=== PATIENT | female | born 1985 | race Caucasian/White ===

== ENCOUNTER 2017-12-13 11:01 | Day surgery (SDC) | payer BC ==
[2017-12-13] MEDS ORDERED: Propofol 200 MG/20 ML SDV ONE (11:03)
[2017-12-13] MEDS ORDERED: Ondansetron 4 MG/2 ML SDV ONE (11:03)
[2017-12-13] MEDS ORDERED: fentaNYL 250 MCG/5 ML SDV ONE (11:03)
[2017-12-13] MEDS ORDERED: Lidocaine 2% 5 ML SDV ONE (11:03)
[2017-12-13] MEDS ORDERED: Midazolam 1 MG/ML 2 ML SDV ONE (11:03)
[2017-12-13] MEDS ORDERED: Sodium Chloride 0.9% 10 ML Syringe FLUSH PRN (11:09)
[2017-12-13] MEDS ORDERED: Sodium Chloride 0.9% 2.5 ML Syringe FLUSH PRN (11:09)
[2017-12-13] MEDS ORDERED: Lactated Ringers 1,000 ML IV SCH (11:15)
--- NOTE | 2017-12-13 11:26 | PCM.PREANE ---
Preanesthetic Assessment - Anesthesia/Transfusion/Family Hx Anesthesia History: Prior Anesthesia Without Reaction Family History of Anesthesia Reaction: No Transfusion History: No Prior Transfusion(s) - Review of Systems General: No Symptoms Pulmonary: No Symptoms Cardiovascular: No Symptoms Gastrointestinal: No Symptoms Neurological: No Symptoms Other: Reports: None - Physical Assessment NPO Status Date: 12/12/17 Height: 1.57 m Weight: 86.183 kg ASA Class: 2 Mental Status: Alert & Oriented x3 Airway Class: Mallampati = 1 Dentition: Reports: Normal Dentition ROM/Head Extension: Full Lungs: Clear to Auscultation, Normal Respiratory Effort Cardiovascular: Regular Rate, Regular Rhythm - Allergies Allergies/Adverse Reactions: Allergies Allergy/AdvReac Type Severity Reaction Status Date / Time No Known Allergies Allergy Verified 12/13/17 07:23 - Blood Blood Available: No - Anesthesia Plan Pre-Op Medication Ordered: None - Acknowledgements Anesthesia Type Planned: General Anesthesia Pt an Appropriate Candidate for the Planned Anesthesia: Yes Alternatives and Risks of Anesthesia Discussed w Pt/Guardian: Yes Pt/Guardian Understands and Agrees with Anesthesia Plan: Yes Additional Comments: PMH: missed ab at 8 weeks, blighted ovum. 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 [No Known Home Meds] 12/13/17 [History] - CURRENT (IN HOUSE) MEDS Current Meds: Current Medications Lactated Ringer's (Ringers, Lactated) 1,000 mls @ 125 mls/hr IV ASDIRECTED MAGGIE Sodium Chloride (Saline Flush) 10 ml FLUSH ASDIRECTED PRN PRN Reason: Keep Vein Open Sodium Chloride (Saline Flush) 2.5 ml FLUSH ASDIRECTED PRN PRN Reason: Keep Vein Open Discontinued Medications Fentanyl (Sublimaze) Confirm Administered Dose 250 mcg .ROUTE .STK-MED ONE Stop: 12/13/17 11:04 Lidocaine (Xylocaine-Mpf 2%) Confirm Administered Dose 5 ml .ROUTE .STK-MED ONE Stop: 12/13/17 11:04 Midazolam HCl (Versed 1 Mg/Ml) Confirm Administered Dose 2 mg .ROUTE .STK-MED ONE Stop: 12/13/17 11:04 Ondansetron HCl (Zofran) Confirm Administered Dose 4 mg .ROUTE .STK-MED ONE Stop: 12/13/17 11:04 Propofol (Diprivan 20 Ml) Confirm Administered Dose 200 mg .ROUTE .STK-MED ONE Stop: 12/13/17 11:04
[2017-12-13] MEDS ORDERED: fentaNYL 100 MCG/2 ML SDV IVPUSH PRN (11:56)
[2017-12-13] MEDS ORDERED: Ketorolac 30 MG/ML SDV IVPUSH ONE (12:11)
--- NOTE | 2017-12-13 12:17 | PCM.OPNOTE ---
- General Post-Op/Procedure Note Date of Surgery/Procedure: 12/13/17 Operative Procedure(s): Suction D&C Findings: Products of conception Pre Op Diagnosis: Blighted ovum Post-Op Diagnosis: Blighted ovum Anesthesia Technique: General LMA Primary Surgeon: Diaan Sosa Anesthesia Provider: Bharath Espinoza Churn Driller: Netta Rockwell Pathology: Products of conception Fluid Replacement, Intraop: 1,000 EBL in mLs: 100 Complications: None known Condition: Good Free Text/Narrative:: Dictation [id number]
--- NOTE | 2017-12-13 12:31 | PCM.POSTAN ---
POST ANESTHESIA ASSESSMENT - MENTAL STATUS Mental Status: Alert, Oriented - RESPIRATORY Respiratory Status: Respiratory Rate WNL, Airway Patent, O2 Saturation Stable - CARDIOVASCULAR CV Status: Pulse Rate WNL, Blood Pressure Stable - GASTROINTESTINAL GI Status: No Symptoms - POST OP HYDRATION Hydration Status: Adequate & Stable
--- NOTE | 2017-12-13 13:46 | PCM48HPAN ---
Post Anesthesia Note - EVALUATION WITHIN 48HRS OF ANESTHETIC Vital Signs in Normal Range: Yes Patient Participated in Evaluation: Yes Respiratory Function Stable: Yes Airway Patent: Yes Cardiovascular Function Stable: Yes Hydration Status Stable: Yes Pain Control Satisfactory: Yes Nausea and Vomiting Control Satisfactory: Yes Mental Status Recovered: Yes Resp Rate: 15
[2017-12-13 15:19] VITALS: BP 114/62
--- NOTE | 2017-12-13 16:10 | OR ---
SURGEON: Diana Sosa M.D. DATE OF PROCEDURE: 12/13/2017 PREOPERATIVE DIAGNOSES: Missed , blighted ovum. POSTOPERATIVE DIAGNOSIS: Missed , blighted ovum. PROCEDURE: Suction D and C. RIDES ATTENDANT: CASIMIRO Figueroa ANESTHESIA: General LMA. FLUIDS: 1000 mL of crystalloid with 20 units of Pitocin. COMPLICATION: None known. FINDINGS: Products of conception. DISPOSITION: The patient to PACU, stable. SPECIMEN: Pathology. INDICATION: Soila is a 32-year-old female, who recently presented for an OB appointment. Ultrasound that day revealed an 8-week 3 day empty intrauterine gestational sac consistent with blighted ovum. Serial quant HCG level shows quant is falling consistent also with a blighted ovum. Options have been discussed with Soila and she prefers to proceed with surgical intervention and performed suction D and C. Risks of procedure were discussed. Proper consent obtained. PROCEDURE IN DETAIL: The patient was taken to the operating room where she underwent general LMA, was placed in modified dorsal lithotomy position, prepped and draped in the usual sterile fashion. The bladder was drained. Time-out was performed. Speculum was introduced into vagina and posterior lip of cervix was grasped with an Allis clamp. Cervix was gently dilated to 8 mm using a curved 8 mm curette. This was introduced to the fundus. Care was taken knowing that the patient has unicornuate uterus. With suction applied, the uterine cavity was cleared of contents. Once the uterus felt to be satisfactorily emptied, the gentle sharp curettage was performed. All specimens sent to Pathology for further analysis. Fundal pressure was performed along with 20 of Pitocin IV and hemostasis was evident. Sponge and instrument count were correct x2. The patient tolerated the procedure well overall. Hemostasis appeared evident. Specimen to pathology. [place] / [place] /[id number]
== END 2017-12-13 13:58 | disposition home or self-care (01) ==
LOC: MW.SDS 11:01
PROVIDERS: ATTEND Obstetrics & Gynecology
DX: O02.0 Blighted ovum and nonhydatidiform mole (principal); O99.211 Obesity complicating pregnancy, first trimester; E66.9 Obesity, unspecified; Z68.34 Body mass index [BMI] 34.0-34.9, adult; Z79.899 Other long term (current) drug therapy
CPT/HCPCS: 36415; 59820; 85027; J1885; J2250; J2405; J2704; J3010; J7120

== ENCOUNTER 2018-01-03 11:08 | Emergency (ER) | payer BC ==
[2018-01-03 11:17] VITALS: BP 129/82
[2018-01-03] MEDS ORDERED: Ketorolac 60 MG/2 ML SDV IM ONE (11:41)
--- NOTE | 2018-01-03 11:42 | EDM.PDOC ---
ED HPI GENERAL MEDICAL PROBLEM - General Chief Complaint: HIGH COURT JUSTICE Problem Stated Complaint: ABD PAIN AND BLEEDING Time Seen by Provider: 01/03/18 11:38 Source of Information: Reports: Patient History Limitations: Reports: No Limitations - History of Present Illness INITIAL COMMENTS - FREE TEXT/NARRATIVE: HISTORY AND PHYSICAL: History of present illness: Patient is a 32-year-old female here with complaint pelvic pain and vaginal bleeding. Patient had a D&C done [address] Sosa secondary to a blighted ovum. She states she had intermittent light bleeding since then. She states that yesterday she had some pelvic cramping and a little more bleeding, she called Dr. Sosa's office and was told it was likely her hormones and the start of a period. She states that this morning she put in a super plus tampon and it was soaked within 45 minutes. She reports when she took it out she had a gush of blood and passed a large clot. She currently has a pad in and still having quite a bit of bleeding. She denies any fevers, chills, nausea, vomiting , diarrhea, hematuria, melena, hematochezia. Review of systems: As per history of present illness and below otherwise all systems reviewed and negative. Past medical history: As per history of present illness and as reviewed below otherwise noncontributory. Surgical history: As per history of present illness and as reviewed below otherwise noncontributory. Social history: No reported history of drug or alcohol abuse. Family history: As per history of present illness and as reviewed below otherwise noncontributory. Physical exam: General: Patient sitting comfortably in no acute distress and nontoxic appearing HEENT: Atraumatic, normocephalic, pupils reactive, negative for conjunctival pallor or scleral icterus, mucous membranes moist, throat clear, neck supple, nontender, trachea midline. No meningeal signs. Lungs: Clear to auscultation, breath sounds equal bilaterally, chest nontender. Heart: S1S2, regular, negative for clicks, rubs, or overt murmur. Abdomen: Soft, nondistended, nontender. Negative for masses or hepatosplenomegaly. Negative for costovertebral tenderness. Pelvis: Stable nontender. Genitourinary: Deferred. Rectal: Deferred. Extremities: Atraumatic, negative for cords or calf pain. Neurovascular unremarkable. Neuro: Awake, alert, oriented. Cranial nerves II through XII unremarkable. Cerebellum unremarkable. Motor and sensory unremarkable throughout. Exam nonfocal. Notes: 1310 - Discussed with Dr. Sosa, patient will follow up with her in clinic. Diagnostics: CBC, Hcg quant, UA Pelvic US Therapeutics: Toradol 60mg IM Prescriptions: None Impression: Pelvic pain, vaginal bleeding Plan: 1. Take midol and motrin as needed. Heat packs and warm baths as needed. 2. Follow up with [facility], call in the morning for appointment if you do not hear from them. 3. Return to ED as needed as discussed Definitive disposition and diagnosis as appropriate pending reevaluation and review of above. pelvic pain Pain Score (Numeric/FACES): 8 - Related Data Allergies Allergy/AdvReac Type Severity Reaction Status Date / Time No Known Allergies Allergy Verified 01/03/18 11:13 Home Meds: Home Meds . 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 HIGH COURT JUSTICE History: unicornuate uterus Endocrine/Metabolic History: Reports: Obesity/BMI 30+ - Infectious Disease History Infectious Disease History: Reports: Chicken Pox - Past Surgical History Head Surgeries/Procedures: Reports: None Female Surgical History: Reports: Section, D&C Social & Family History - Family History Family Medical History: Noncontributory Cardiac: Reports: Hypertension Endocrine/Metabolic: Reports: Diabetes, Type I Oncologic: Reports: Other (See Below) Other Oncologic Family History: lymphoma - Tobacco Use Smoking Status *Q: Never Smoker - Caffeine Use Caffeine Use: Reports: Soda - Recreational Drug Use Recreational Drug Use: No ED ROS GENERAL - Review of Systems Review Of Systems: ROS reveals no pertinent complaints other than HPI. ED EXAM, RENAL/ - Physical Exam Exam: See Below (see dictation) Course - Vital Signs Last Recorded V/S: Last Vital Signs Temp 36.4 C 01/03/18 11:13 Pulse 74 01/03/18 11:13 Resp 20 01/03/18 11:13 BP 129/82 01/03/18 11:13 Pulse Ox 97 09/18/18 11:13 - Orders/Labs/Meds Orders: Active Orders 24 hr Category Date Time Status UA W/MICROSCOPIC [URIN] Stat Lab 01/03/18 11:17 Ordered Labs: Laboratory Tests 01/03/18 01/03/18 Range/Units 11:38 11:38 WBC 7.62 (4.0-11.0) K/uL RBC 4.22 L (4.30-5.90) M/uL Hgb 13.5 (12.0-16.0) g/dL Hct 39.0 (36.0-46.0) % MCV 92.4 (80.0-98.0) fL MCH 32.0 (27.0-32.0) pg MCHC 34.6 (31.0-37.0) g/dL RDW Std Deviation 43.7 (28.0-62.0) fl RDW Coeff of Carmen 13 (11.0-15.0) % Plt Count 192 (150-400) K/uL MPV 9.80 (7.40-12.00) fL Neut % (Auto) 58.9 (48.0-80.0) % Lymph % (Auto) 31.9 (16.0-40.0) % Thurston % (Auto) 8.4 (0.0-15.0) % Eos % (Auto) 0.5 (0.0-7.0) % Baso % (Auto) 0.3 (0.0-1.5) % Neut # (Auto) 4.5 (1.4-5.7) K/uL Lymph # (Auto) 2.4 (0.6-2.4) K/uL Thurston # (Auto) 0.6 (0.0-0.8) K/uL Eos # (Auto) 0.0 (0.0-0.7) K/uL Baso # (Auto) 0.0 (0.0-0.1) K/uL Nucleated RBC % 0.0 /100WBC Nucleated RBCs # 0 K/uL HCG, Quant 565.0 mIU/mL Meds: Medications Discontinued Medications Generic Name Dose Route Start Last Admin Trade Name Freq PRN Reason Stop Dose Admin Ketorolac Tromethamine 60 mg 01/03/18 11:41 01/03/18 11:49 Toradol IM 01/03/18 11:42 60 mg ONETIME ONE Administration Departure - Departure Time of Disposition: 13:17 Disposition: Home, Self-Care 01 Condition: Good Clinical Impression: Pelvic pain, Vaginal bleeding - Discharge Information Referrals: PCP,None [Primary Care Provider] - Forms: ED Department Discharge Additional Instructions: The following information is given to patients seen in the emergency department who are being discharged to home. This information is to outline your options for follow-up care. We provide all patients seen in our emergency department with a follow-up referral. The need for follow-up, as well as the timing and circumstances, are variable depending upon the specifics of your emergency department visit. If you don't have a primary care physician on staff, we will provide you with a referral. We always advise you to contact your personal physician following an emergency department visit to inform them of the circumstance of the visit and for follow-up with them and/or the need for any referrals to a consulting specialist. The emergency department will also refer you to a specialist when appropriate. This referral assures that you have the opportunity for follow-up care with a specialist. All of these measure are taken in an effort to provide you with optimal care, which includes your follow-up. Under all circumstances we always encourage you to contact your private physician who remains a resource for coordinating your care. When calling for follow-up care, please make the office aware that this follow-up is from your recent emergency room visit. If for any reason you are refused follow-up, please contact the [facility] Emergency Department at and asked to speak to the emergency department charge nurse. [facility] [address] [place] [id number] 1. Take midol and motrin as needed. Heat packs and warm baths as needed. 2. Follow up with [facility], call in the morning for appointment if you do not hear from them. 3. Return to ED as needed as discussed - My Orders Last 24 Hours: My Active Orders 01/03/18 11:17 UA W/MICROSCOPIC [URIN] Stat - Assessment/Plan Last 24 Hours: My Active Orders 01/03/18 11:17 UA W/MICROSCOPIC [URIN] Stat
--- NOTE | 2018-01-03 12:43 | US ---
EXAMINATION: Transabdominal pelvic ultrasound HISTORY: Pain COMPARISON: 11/19/2010 TECHNIQUE: Grayscale and color Doppler imaging obtained. FINDINGS: Uterus is normal in size, contour, and echogenicity. The endometrial stripe thickness is mi ldly heterogeneous measuring 1.4 cm. No color Doppler imaging obtained of the endometrial stripe. The re is a saclike fluid collection within the endocervical canal measuring approximately 7 x 1.8 cm. No imaging obtained of the ovaries. IMPRESSION: 1. Saclike dilatation noted of the endocervical canal. This appears simple and may represent a retain ed or passing gestational sac. 2. Otherwise the endometrial stripe appears mildly heterogeneous.
== END 2018-01-03 13:26 | disposition home or self-care (01) ==
LOC: MW.ED 11:08
DX: N93.9 Abnormal uterine and vaginal bleeding, unspecified (principal)
CPT/HCPCS: 36415; 76857; 84702; 85025; 96372; 99284; J1885

== ENCOUNTER 2020-01-27 00:21 | Emergency (ER) | payer BC ==
[2020-01-27] MEDS ORDERED: Tetracaine HCl/PF 0.5% 4 ML Bottle EYELF ONE (01:05)
[2020-01-27 01:09] VITALS: BP 125/71; PULSE 79
--- NOTE | 2020-01-27 01:18 | EDM.PDOC ---
ED HPI GENERAL MEDICAL PROBLEM - General Chief Complaint: Eye Problems Stated Complaint: LT EYE HURTS Time Seen by Provider: 01/27/20 00:27 - History of Present Illness INITIAL COMMENTS - FREE TEXT/NARRATIVE: 34-year-old female presenting with left eye irritation. Patient was taking her contact out from taking off mascara she rubbed her eye and then noted which she was worried might be a defect in her eye and so presents for evaluation. Patient denies pain but does report some mild discomfort no diplopia no blurry vision no pain with extraocular motions no other ocular history. Left Eye Pain Score (Numeric/FACES): 2 - Related Data Allergies Allergy/AdvReac Type Severity Reaction Status Date / Time No Known Allergies Allergy Verified 01/27/20 01:09 Home Meds: Home Meds . 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 SCHEDULING COORDINATOR History: unicornuate uterus Endocrine/Metabolic History: Reports: Obesity/BMI 30+ - Infectious Disease History Infectious Disease History: Reports: Chicken Pox - Past Surgical History Head Surgeries/Procedures: Reports: None Female Surgical History: Reports: Section, D&C Social & Family History - Family History Family Medical History: Noncontributory Cardiac: Reports: Hypertension Endocrine/Metabolic: Reports: Diabetes, Type I Oncologic: Reports: Other (See Below) Other Oncologic Family History: lymphoma - Tobacco Use Smoking Status *Q: Never Smoker Second Hand Smoke Exposure: No - Caffeine Use Caffeine Use: Reports: Soda - Recreational Drug Use Recreational Drug Use: No ED ROS GENERAL - Review of Systems Review Of Systems: See Below Free Text/Narrative/Comment: General: No fever. Skin: No rash. Eyes: Per HPI ENT: No sore throat. Neck: No neck stiffness. ED EXAM GENERAL W FULL EYE - Physical Exam Exam: See Below Text/Narrative:: General Appearance: No acute distress, appears comfortable Skin: No rash HEENT: Normocephalic/atraumatic, sclera anicteric, mucous membranes moist, normal lids and lashes bilaterally, minimal left eye conjunctival injection, pterygium in the medial assess effect of the sclera of the left eye anterior chamber normal no uptake on fluorescein acuities at baseline Neck: Normal range of motion Musculoskeletal: No edema or tenderness Neurologic: Awake, alert, no obvious deficits, moving all extremities Psychiatric: Appropriate, cooperative Course - Vital Signs Last Recorded V/S: Last Vital Signs Temp 96.5 F L 01/27/20 01:01 Pulse 79 01/27/20 01:01 Resp 12 01/27/20 01:01 BP 125/71 01/27/20 01:01 Pulse Ox 97 01/27/20 01:01 - Orders/Labs/Meds Meds: Medications Discontinued Medications Generic Name Dose Route Start Last Admin Trade Name Freq PRN Reason Stop Dose Admin Tetracaine HCl 1 ml 01/27/20 01:05 Tetracaine 0.5% Steri-Unit Angi EYELF 01/27/20 01:06 ASDIRECTED ONE Departure - Departure Time of Disposition: 01:18 Disposition: Home, Self-Care 01 Condition: Good Clinical Impression: Conjunctivitis - Discharge Information *PRESCRIPTION DRUG MONITORING PROGRAM REVIEWED*: Not Applicable *COPY OF PRESCRIPTION DRUG MONITORING REPORT IN PATIENT [place]: Not Applicable Referrals: Karlo Golden MD [Ordering Only Provider] - 3 Days (Follow-up with opthalmology if your symptoms have not resolved by Tuesday or Tuesday.) Additional Instructions: Do not wear your contacts for the next 2 days or until your symptoms completely resolved. If your symptoms do not completely resolve by Tuesday or Tuesday then please follow-up with ophthalmology. The following information is given to patients seen in the emergency department who are being discharged to home. This information is to outline your options for follow-up care. We provide all patients seen in our emergency department with a follow-up referral. The need for follow-up, as well as the timing and circumstances, are variable depending upon the specifics of your emergency department visit. If you don't have a primary care physician on staff, we will provide you with a referral. We always advise you to contact your personal physician following an emergency department visit to inform them of the circumstance of the visit and for follow-up with them and/or the need for any referrals to a consulting specialist. The emergency department will also refer you to a specialist when appropriate. This referral assures that you have the opportunity for follow-up care with a specialist. All of these measure are taken in an effort to provide you with optimal care, which includes your follow-up. Under all circumstances we always encourage you to contact your private physician who remains a resource for coordinating your care. When calling for follow-up care, please make the office aware that this follow-up is from your recent emergency room visit. If for any reason you are refused follow-up, please contact the [facility] Emergency Department at and asked to speak to the emergency department charge nurse. Sepsis Event Note (ED) - Evaluation Sepsis Screening Result: No Definite Risk - Focused Exam Vital Signs: Vital Signs Temp Pulse Resp BP Pulse Ox 01/27/20 01:01 96.5 F L 79 12 125/71 97 - Assessment/Plan Assessment:: 34-year-old female presenting with signs and symptoms most consistent with mild mechanical conjunctivitis no findings of retained foreign body no uptake that would suggest corneal abrasion and no severe pain that would suggest acute ocular infection or other injury. Patient will keep her contacts out for 24 to 48 hours if symptoms do not resolve she will follow-up with ophthalmology.
== END 2020-01-27 01:21 | disposition home or self-care (01) ==
LOC: MW.ED 00:21
DX: H10.9 Unspecified conjunctivitis (principal); E66.9 Obesity, unspecified; Z68.35 Body mass index [BMI] 35.0-35.9, adult
CPT/HCPCS: 99282

== ENCOUNTER 2024-09-03 07:24 | Day surgery (SDC) | payer BC ==
[2024-09-03] MEDS ORDERED: Propofol 200 MG/20 ML SDV ONE (07:27)
[2024-09-03] MEDS ORDERED: fentaNYL 100 MCG/2 ML SDV ONE (07:27)
[2024-09-03] MEDS ORDERED: propofoL 500 MG/50 ML 50 ML ONE (07:27)
[2024-09-03] MEDS ORDERED: Lidocaine 2% 5 ML SDV ONE (07:29)
[2024-09-03] MEDS ORDERED: HYDROmorphone 1 MG/ML Syringe IVPUSH PRN (07:39)
[2024-09-03] MEDS ORDERED: Metoclopramide 10 MG/2 ML SDV IVPUSH PRN (07:39)
[2024-09-03] MEDS ORDERED: Phenylephrine HCl In 0.9% NaCl 1 MG/10 ML Syringe IVPUSH PRN (07:39)
[2024-09-03] MEDS ORDERED: Ondansetron 4 MG/2 ML SDV IVPUSH PRN (07:39)
[2024-09-03] MEDS ORDERED: Morphine 2 MG/ML SYRINGE IVPUSH PRN (07:39)
[2024-09-03] MEDS ORDERED: Naloxone 0.4 MG/ML SDV IVPUSH PRN (07:39)
[2024-09-03] MEDS ORDERED: fentaNYL 50 MCG/ML SDV IVPUSH PRN (07:39)
[2024-09-03] MEDS ORDERED: Albuterol 0.083% 2.5 MG/3 ML Neb Soln NEB PRN (07:39)
[2024-09-03 07:54] LABS: HEMATOCRIT 40.5 % (37.0-47.0); HEMOGLOBIN 14.1 g/dL (12.0-16.0); MEAN CORPUSCULAR HEMOGLOBIN 31.4 pg (28.0-32.0); MEAN CORPUSCULAR HGB CONC 34.8 g/dL (32.0-36.0); MEAN CORPUSCULAR VOLUME 90.2 fL (83.0-99.0); PLATELET COUNT,PLT 238 K/uL (150-400); RED BLOOD CELL COUNT 4.49 M/uL (4.10-5.30); WHITE BLOOD CELL COUNT,WBC 5.37 K/uL (3.9-11.3)
[2024-09-03] MEDS: Lactated Ringers 1,000 ML IV SCH (07:57)
[2024-09-03] MEDS ORDERED: Ketamine HCL/NACL, ISO-OSM 50 MG/5 ML Syringe ONE (08:34)
[2024-09-03] MEDS ORDERED: Ondansetron 4 MG/2 ML SDV ONE (08:49)
[2024-09-03] MEDS ORDERED: Dexamethasone 4 MG/ML 5 ML MDV ONE (08:49)
[2024-09-03] MEDS ORDERED: Ketorolac 30 MG/ML SDV ONE (08:49)
[2024-09-03] MEDS ORDERED: Scopalamine 1mg/3day Transdermal Patch ONE (09:17)
[2024-09-03 10:10] VITALS: BP 100/66; PULSE 87
== END 2024-09-03 10:40 | disposition home or self-care (01) ==
LOC: MW.SDS 07:24
PROVIDERS: ATTEND Obstetrics & Gynecology
DX: N85.8 Other specified noninflammatory disorders of uterus (principal); E66.9 Obesity, unspecified; Z68.31 Body mass index [BMI] 31.0-31.9, adult; Z79.899 Other long term (current) drug therapy
CPT/HCPCS: 36415; 58558; 84703; 85027; C1729; J1100; J1885; J2003; J2405; J2704; J3010; J7120; 00952; J3490